=== PATIENT | female | born 1980 | race Caucasian/White ===

== ENCOUNTER 2020-12-27 08:26 | Outpatient (REF) | payer OTHER, SELFPAY ==
[2021-01-02 03:11] LABS: HPV 16 RNA NOT DETECTED (NOT DETECTED); HPV mRNA E6/E7 rflx Detected (Not Detected)
== END 2020-12-27 08:27 | disposition home or self-care (01) ==
LOC: HO.LAB 08:26
PROVIDERS: Visit Provider Advanced Practice Midwife
DX: Z01.419 Encounter for gynecological examination (general) (routine) without abnormal findings (principal); N87.0 Mild cervical dysplasia; F32.9 Major depressive disorder, single episode, unspecified; G43.909 Migraine, unspecified, not intractable, without status migrainosus; Z97.5 Presence of (intrauterine) contraceptive device
CPT/HCPCS: 87624; 87625; 88141; 88142

== ENCOUNTER 2021-02-21 09:26 | Outpatient (REF) | payer OTHER, SELFPAY | END 2021-02-21 09:27 | disposition home or self-care (01) | LOC: HO.LAB 09:26 | PROVIDERS: Visit Provider Obstetrics & Gynecology | DX: N87.0 Mild cervical dysplasia (principal) | CPT/HCPCS: 57454; 81025; 88305 ==

== ENCOUNTER → 2021-03-07 10:10 | Outpatient (BNVA) | payer OTHER, SELFPAY | PROVIDERS: Visit Provider Obstetrics & Gynecology ==

== ENCOUNTER 2021-06-26 05:40 | Emergency (ER) | payer OTHER, SELFPAY ==
[2021-06-26 05:44] VITALS: BP 137/76; PULSE 100; RESP 18; TEMP 37.1; O2SAT 97; BMI 23.8
[2021-06-26 06:14] LABS: Appearance Urine HAZY; Color Urine DK YELLOW; Glucose Urine UA NEG (NEG); Leukocyte Esterase Urine NEG (NEG); Nitrite Urine NEG (NEG); Specific Gravity - Urine 1.025 (1.005-1.025); UACC Culture Trigger NO; Urine Blood 2+ (NEG); Urine Ketones >=80 MG/DL (NEG); Urine Protein 2+ MG/DL (NEG-TRACE)
[2021-06-26 06:17] LABS: UPreg QC Valid YES; Urine Pregnancy NEGATIVE (NEGATIVE)
[2021-06-26 06:23] LABS: COVID-19 Test Negative (Negative)
[2021-06-26 06:26] LABS: MANUAL DIFF FLAG NO
[2021-06-26 06:27] LABS: Basophils Percent Auto 0.1 % (0-2); Eosinophils Percent Auto 0.1 % (0-4); Hematocrit 46.1 % (37-47); Hemoglobin 15.9 g/dl (12.0-16.0); Imm Gran Abs Auto 0.02 X10*3/uL (0.00-0.03); Imm Gran Pct Auto 0.2 % (0.0-0.4); Lymphocytes Absolute Auto 1.1 X10*3/uL (1.2-4.9); Mean Corpuscular HGB Conc 34.5 g/dl (31.0-35.0); Mean Corpuscular Hemoglobin 32.8 pg (27.0-33.0); Mean Corpuscular Volume 95.1 fL (80-98); Mean Platelet Volume 8.7 fL (9.4-12.3); Monocytes Absolute Auto 0.7 X10*3/uL (0.1-1.2); Monocytes Percent Auto 6.6 % (2-11); Neutrophils Absolute Auto 8.1 X10*3/uL (2.0-8.3); Platelet Count 231 X10*3/uL (160-400); Red Blood Count 4.85 X10*6/uL (4.20-5.50); Red Cell Distribution Width 12.7 % (11.0-16.0); White Blood Count 9.9 X10*3/uL (4.8-10.8)
[2021-06-26 06:34] LABS: Lactic Acid 0.8 mmol/L (0.5-2.0)
[2021-06-26 06:42] LABS: Anion Gap 17 (12-20); Blood Urea Nitrogen 9 mg/dL (9-16); Calcium 9.5 mg/dL (8.4-10.2); Carbon Dioxide 23 mmol/L (22-29); Chloride 102 mmol/L (96-108); Creatinine Clr Calc Pharmacy 71.7; Estimated Glomerular Filt Rate > 60; Glucose Random 99 mg/dL (60-115); Potassium 4.1 mmol/L (3.3-5.1); Sodium 138 mmol/L (135-145)
[2021-06-26 06:47] LABS: Mucus Urine 4+ /LPF; Squamous Epithelial Cell Urine 4+ /LPF; WBC Urine 0-2 /HPF (0-4)
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
[2021-06-26 08:00] LABS: Strep A Nucleic Acid Negative (Negative)
[2021-06-26 08:35] LABS: Monotest Positive (Negative)
--- NOTE | 2021-06-26 09:30 | PC.NURSE ---
pt alert and oriented, vss, pt denies pain, pt medically cleared for discharge. discharge summary given to pt.
[2021-06-26 09:37] VITALS: BP 105/76; PULSE 86; RESP 16; O2SAT 97
== END 2021-06-26 09:38 | disposition home or self-care (01) ==
PROVIDERS: Emergency Provider Emergency Medicine
DX: B25.9 Cytomegaloviral disease, unspecified (principal); M54.50 Low back pain, unspecified; R50.9 Fever, unspecified; Z20.822 Contact with and (suspected) exposure to COVID-19; Z79.899 Other long term (current) drug therapy
CPT/HCPCS: 36415; 80048; 81001; 81025; 83605; 85025; 86308; 87040; 87635; 87651; 99283; 99284

== ENCOUNTER 2021-06-30 11:13 | Inpatient (IN) | payer OTHER, MEDICAID, SELFPAY ==
[2021-06-30] VITALS (7 sets, daily range): BP systolic 114–148; BP diastolic 42–95; PULSE 81–100; RESP 16–18; TEMP 36.4–37.3; O2SAT 96–99; BMI 24.5
--- NOTE | ~2021-06-30 | US_ITS ---
EXAMINATION: US ABDOMEN LIMITED CLINICAL INFORMATION: Question cholecystitis. COMPARISON: CT abdomen 06/30/2021 TECHNIQUE: Real-time imaging of the right upper quadrant abdominal viscera. FINDINGS: GALLBLADDER: Multiple gallstones. Echogenic bile. Gallbladder wall is mildly prominent measuring 4 mm. No pericholecystic fluid. No tenderness in the area of the gallbladder. COMMON BILE DUCT: Normal in caliber measuring 0.4 cm in diameter. FREE FLUID: No significant fluid in the right upper quadrant. US/US abdomen limited IMPRESSION: Cholelithiasis. Echogenic bile. Gallbladder wall prominence measuring 4 mm. No tenderness or pericholecystic fluid. Findings are nonspecific, equivocal. Early or evolving cholecystitis cannot be excluded. Recommend close clinical correlation and follow-up. Short-term follow-up ultrasound or further evaluation with HIDA scan as clinically warranted.
--- NOTE | ~2021-06-30 | CT_ITS ---
EXAMINATION: CT ABDOMEN AND PELVIS WITH CONTRAST CLINICAL INFORMATION: Right lower quadrant pain. History of mononucleosis. COMPARISON: None TECHNIQUE: Multidetector volumetric images were obtained from the superior aspect of the liver through the pubic symphysis following administration 85 mL of Omnipaque 350 intravenous contrast. Sagittal and coronal reformatted images were obtained on the technologist's workstation. Oral contrast: Yes This CT examination was performed using dose optimization techniques as appropriate, variously including the following: *Automated exposure control *Adjustment of mA and/or kV according to patient size (this includes techniques or standardized protocols for targeted exams where dose is matched to indication/reason for exam; i.e. extremities or head) *Use of iterative reconstruction technique DLP: 484 mGy-cm FINDINGS: LUNG BASES: The visualized lung bases are unremarkable. LIVER, GALLBLADDER, AND BILIARY TREE: The liver is normal in size, shape, and attenuation. No focal hepatic lesion or biliary ductal dilatation is present. There are gallstones in the gallbladder. PANCREAS: Unremarkable. SPLEEN: Unremarkable. ADRENAL GLANDS: Unremarkable. KIDNEYS AND URETERS: There is a 4 mm stone in the right kidney. No hydronephrosis, ureteral dilatation or ureteral stone is seen. BLADDER: Unremarkable. GASTROINTESTINAL TRACT: The small and large bowel are unremarkable. The appendix is unremarkable. ABDOMINAL WALL: No significant hernia is appreciated. LYMPH NODES: Normal. VASCULAR: Unremarkable. PELVIC VISCERA: There is an IUD in the uterus in satisfactory position. OSSEOUS STRUCTURES: There are degenerative changes of the spine. CT/CT abdomen pelvis w con IMPRESSION: Gallstones. Right renal stone. Normal-appearing appendix. Normal-sized spleen. IUD in the uterus in satisfactory position.
--- NOTE | 2021-06-30 12:33 | ECG_ITS ---
Test Reason : MONO? Blood Pressure : / mmHG Vent. Rate : 085 BPM Atrial Rate : 085 BPM P-R Int : 134 ms QRS Dur : 080 ms QT Int : 350 ms P-R-T Axes : 062 038 031 degrees QTc Int : 416 ms Normal sinus rhythm Nonspecific ST abnormality Abnormal ECG No previous ECGs available Referred By: Lisa Irizarry Electronically Signed By:CRISTOFER BLACK MD
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
[2021-06-30 13:26] LABS: Hematocrit 39.6 % (37-47); Hemoglobin 13.9 g/dl (12.0-16.0); Mean Corpuscular HGB Conc 35.1 g/dl (31.0-35.0); Mean Corpuscular Hemoglobin 32.9 pg (27.0-33.0); Mean Corpuscular Volume 93.8 fL (80-98); Mean Platelet Volume 8.3 fL (9.4-12.3); Platelet Count 209 X10*3/uL (160-400); Red Blood Count 4.22 X10*6/uL (4.20-5.50); Red Cell Distribution Width 12.7 % (11.0-16.0); White Blood Count 5.1 X10*3/uL (4.8-10.8)
[2021-06-30] MEDS: Lidocaine HCl Viscous 2 % 15 ML SOLUTION 10 ML MUCOUS MEM (13:30)
[2021-06-30] MEDS: Cyclobenzaprine HCl 10 MG TABLET PO (13:31)
[2021-06-30] MEDS: Ibuprofen 800 MG TABLET PO (13:31)
[2021-06-30] MEDS: Butalb/Acetamin/Caff 50/325/40 TABLET 1 TAB PO (13:31)
[2021-06-30] MEDS: 0.9 % Sodium Chloride 1,000 ML 999 ML IVCONT ×3 (13:32→16:43)
[2021-06-30] MEDS: dexAMETHasone sod phosphate 10 MG/ML VIAL IVPUSH (13:32)
[2021-06-30] MEDS: ondansetron HCL 4 MG/2 ML VIAL IVPUSH ×3 (13:32→20:10)
[2021-06-30 13:52] LABS: Alanine Aminotransferase 153 U/L (0-31); Albumin Level 4.2 g/dL (3.5-5.0); Alkaline Phosphatase 181 U/L (39-117); Anion Gap 15 (12-20); Aspartate Amino Transferase 86 U/L (5-31); Bilirubin Total 0.7 mg/dL (0.0-1.0); Blood Urea Nitrogen 8 mg/dL (9-16); Calcium 9.2 mg/dL (8.4-10.2); Carbon Dioxide 26 mmol/L (22-29); Chloride 104 mmol/L (96-108); Estimated Glomerular Filt Rate > 60; Glucose Random 92 mg/dL (60-115); Potassium 3.5 mmol/L (3.3-5.1); Sodium 141 mmol/L (135-145); Total Protein 6.9 g/dL (6.5-8.0)
[2021-06-30 13:55] LABS: Atypical Lymph Absolute Manual 0.6 x10*3/uL; Atypical Lymphs Percent Manual 11 % (0-6); Band Neutrophils Percent 0 % (3-5); Lymphocytes Absolute Manual 1.6 X10*3/uL (0.6-4.8); Lymphocytes Percent Manual 31 % (20-40); Monocytes Absolute Manual 0.3 X10*3/uL (0.0-1.2); Monocytes Percent Manual 5 % (2-11); Neutrophils Absolute Manual 2.7 X10*3/uL (2.2-7.9); Neutrophils Percent Manual 53 % (45-73)
[2021-06-30 13:56] LABS: Platelet Estimate NORMAL (NORMAL); Platelet Morphology Comment NORMAL; RBC Morphology NORMAL
--- NOTE | 2021-06-30 14:05 | PC.NURSE ---
recent [place] diagnosis, states right sided low abd pain and nausea, no vomiting. Also reports headache, stiff neck and throat discomfort. IV established and labs drawn. Medicated as charted. Skin color pink warm and dry. Speaking full sentences. Pt reports unable to tolerate PO x 4 days.
[2021-06-30 14:11] LABS: HCG Quantitative < 2 mIU/mL
[2021-06-30 14:12] LABS: Appearance Urine HAZY; Color Urine YELLOW; Glucose Urine UA NEG (NEG); Leukocyte Esterase Urine NEG (NEG); Nitrite Urine NEG (NEG); PH 6.5 (5.0-8.0); Specific Gravity - Urine 1.015 (1.005-1.025); UACC Culture Trigger NO; Urine Blood TRACE (NEG); Urine Ketones >=80 MG/DL (NEG); Urine Protein NEG (NEG-TRACE)
[2021-06-30 14:15] LABS: UPreg QC Valid YES; Urine Pregnancy NEGATIVE (NEGATIVE)
[2021-06-30 14:26] LABS: Squamous Epithelial Cell Urine 3+ /LPF
[2021-06-30 14:27] LABS: Amorphous Sediment Urine 2+ /LPF; Bacteria Urine 1+ /LPF; Mucus Urine 1+ /LPF; RBC Urine 0 /HPF (0); WBC Urine 0-2 /HPF (0-4)
[2021-06-30] MEDS: iohexoL 350 MG/ML 100 ML INFUS..BTL 85 ML IV (15:00)
[2021-06-30 16:02] LABS: Lipase 26 U/L (8-78)
--- NOTE | 2021-06-30 17:47 | PC.NURSE ---
Pt reports throat has greatly improved s/p lidocaine, headache remains but improved since arrival and abd pain is worsening at this time. appears comfortable. All fluid orders have been complet. No nausea/vomtiing, awaits u/s reslts
[2021-06-30] MEDS: Morphine Sulfate 4 MG/ML CARTRIDGE IVPUSH ×2 (18:37→20:10)
[2021-06-30] MEDS: Piperacillin Sodium/Tazobactam 3.375 GM in 0.9 % Sodium Chloride 50 ML IV (20:10)
[2021-06-30 20:30] LABS: COVID-19 Test Negative (Negative)
[2021-06-30] MEDS: Dextrose 5 % and Lactated Ring 1,000 ML 125 ML IVCONT (21:24)
[2021-07-01] VITALS (20 sets, daily range): BP systolic 113–145; BP diastolic 64–77; PULSE 73–96; RESP 15–20; TEMP 36.4–37.3; O2SAT 93–100
[2021-07-01] MEDS: Piperacillin Sodium/Tazobactam 3.375 GM in 0.9 % Sodium Chloride 50 ML IV ×2 (02:42→07:43)
[2021-07-01] MEDS: Acetaminophen 325 MG TABLET 650 MG PO (02:47)
--- NOTE | 2021-07-01 03:06 | PC.NURSE ---
Pt c/o sore throat and HOOPER, requesting the medicine they gave me for my throat earlier in the day. This RN sees lidocaine in the MAR, requests order for same from Dr Roach. Per V/O from Dr Roach, pt to receive lidocaine.
[2021-07-01] MEDS: Lidocaine HCl Viscous 2 % 15 ML SOLUTION MUCOUS MEM (03:12)
--- NOTE | 2021-07-01 03:52 | PC.NURSE ---
pt reports improvement in HOOPER from 03/31 to 01/29, states it's getting better. Pt offered additional PO per clear liquid diet, declines. Pt ambulates to bathroom with steady, independent gait. Initial liter of D5LR continues to infuse as ordered despite MAR indicating need for additional bag at this time.
[2021-07-01] MEDS: Dextrose 5 % and Lactated Ring 1,000 ML 125 ML IVCONT ×2 (05:04→18:49)
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
--- NOTE | 2021-07-01 11:39 | MHC.CM.PN ---
Patient lives with two young children. Fully independent, no prior services or equipment needs. Car in [facility] parking [place]. Plan is home at time of D/C. If unable to drive self, she will find alternate transport home. CM to follow.
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
--- NOTE | 2021-07-01 13:06 | P.OP_ITS ---
Operative Note Operative Note Date of Service: 07/01/21 Narrative: Preoperative diagnosis: acute cholecystitis, cholelithiasis Postoperative diagnosis: Same Procedure: Laparoscopic cholecystectomy Surgeon: Otis Whitaker MD Tanning Salon Attendant: NADINE Stallings Anesthesia: General endotracheal Indications for procedure: 41-year-old female patient presenting with complaints of abdominal pain in the right upper quadrant recently diagnosed with mononucleosis. The pain increased in severity and should return to the emergency department at which time an elevated liver function tests were identified. Gallstones were subsequent identified on CT and ultrasound. The wall was noted of a moderately thickened on ultrasound. She presents today for laparoscopic or possible open cholecystectomy. Operative findings: Multiple gallstones within the gallbladder with pericholecystic fluid and edematous gallbladder wall. Specimen: gallbladder Estimated blood loss: 10 mL Complications: none Procedure details: Patient was brought to the OR and placed in a supine position. After administering general anesthesia the patient's abdomen was prepped with ChloraPrep and draped in a sterile fashion. Local anesthesia consisting of 0.5% Sensorcaine without epinephrine was infiltrated in a periumbilical region. A 5 mm incision was made above the umbilicus in a transverse fashion. The Veress needle was then inserted while elevating abdominal cavity with towel clips. After positive drop test the abdomen was insufflated to a pressure of 15 mm of mercury. The Veress needle was then removed and a 5 mm trocar inserted. The camera was inserted in the abdomen explored. A 12 mm trocar was then placed in the epigastrium and two 5 mm trocars placed in the right upper quadrant. The patient was placed in reverse Trendelenburg positioning and rotated to the left. The gallbladder was grasped with the fundus and retracted cephalad.. The infundibulum was then grasped and retracted away from the liver bed. The Dolphin dissected was then used to dissect the peritoneum off the infundibulum to reveal the junction with the cystic duct. Cystic artery was noted slightly medial and posterior to the cystic duct. After obtaining a critical view the cystic duct was doubly clipped and divided. The cystic artery was then doubly clipped and divided. The gallbladder was then dissected off the liver bed using electrocautery with an L hook. Hemostasis was assured all times using the electrocautery. When the gallbladder is completely dissected off the liver bed was placed in an Endo- Catch bag and brought out through the epigastric incision. The gallbladder was sent to pathology for further examination. The abdomen was then re-examined. The liver bed was irrigated and suctioned dry. No bleeding or bile leak could be identified. CO2 was then evacuated and all trocars removed. Fascia was closed at the epigastric incision using a [id number] Polysorb suture. Skin was closed in all incisions using a subcuticular 4 0 Polysorb suture. Sterile dressings consisting of Steri-Strips, 2 x 2 gauze, and Tegaderm were then applied. The patient tolerated the procedure well. Sponge instrument and needle counts reported as correct. The patient was transferred to PACU in stable condition.
[2021-07-01] MEDS: fentaNYL citrate/PF 100 MCG/2 ML VIAL 50 MCG IVPUSH ×4 (13:20→13:47)
--- NOTE | 2021-07-01 13:58 | PC.NURSE ---
GETTING READY TO DISCHARGE PATIENT FROM PACU AND SHE STARTED TO FEEL ITCHY. LUNGS CLEAR THROUGHOUT. REDNESS NOTED TO FOREHEAD AND NECK. NO SOB OR RESP DISTRESS.
[2021-07-01] MEDS: diphenhydrAMINE HCL 50 MG/ML VIAL 25 MG IVPUSH (14:02)
--- NOTE | 2021-07-01 14:06 | PC.NURSE ---
MEDICATED WITH BENADRYL 25MG IVP PER MD CALZADA ANESTHESIA.
--- NOTE | 2021-07-01 14:22 | PC.NURSE ---
UPON ARRIVAL TO FLOOR PATIENT HAD DECREASED ITCHING AND REDNESS TO HER FOREHEAD AND NECK. NO SOB OR RESP DISTRESS. PRIMARY RN ALEJANDRO AWARE OF THE BENADRYL AND RASH.
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
[2021-07-01] MEDS: Cyclobenzaprine HCl 10 MG TABLET PO (22:24)
[2021-07-02] VITALS: BP 120/70; PULSE 76; RESP 18; TEMP 37.2; O2SAT 98
[2021-07-02 04:00] VITALS: BP 124/74; PULSE 74; RESP 18; TEMP 36.9; O2SAT 98
[2021-07-02] MEDS: Dextrose 5 % and Lactated Ring 1,000 ML 125 ML IVCONT (04:30)
[2021-07-02 07:16] VITALS: BP 119/67; PULSE 73; RESP 18; TEMP 37.1; O2SAT 99
--- NOTE | 2021-07-02 09:19 | P.PNGS_ITS ---
Subjective Subjective Date of Service: 07/02/21 Interval history: feels better no events reported tolerating oral intake Physical Exam Vital Signs: Vital Signs: Last Vital Signs Temp 98.8 F 07/02/21 07:16 Pulse 73 07/02/21 07:16 Resp 18 07/02/21 07:16 BP 119/67 07/02/21 07:16 Pulse Ox 99 07/02/21 07:16 Body Mass Index 24.5 Const: General: comfortable and no acute distress Eyes: Sclerae: sclerae normal Resp: Effort & Inspection: normal respiratory effort Cardio: Rate: regular rate GI: Other: dressings dry, no redness Palpation (GI): Soft to palpation and not firm Procedures Date of Service Date of Service: 07/02/21 Progress Note: A&P Assessment and plan (1) Cholecystitis, acute with cholelithiasis: Status: Acute Assessment and Plan: S/P lap ana doing well postop she says she is ready to go home dc instructions given ffup with Dr. chambers Fall Risk Details Current Medications: Current Medications Cyclobenzaprine HCl (Cyclobenzaprine Hcl 10 Mg Tablet) 10 mg PO BEDTIME PRN PRN Reason: Muscle Spasm Last Admin: 07/01/21 22:24 Dose: 10 mg Documented by: Dextrose/Lactated Ringer's (D5lr) 1,000 mls @ 125 mls/hr IVCONT .Q8H [facility] Last Admin: 07/02/21 04:30 Dose: 125 mls/hr Documented by: Acetaminophen (Ofirmev) 1,000 mg in 100 mls @ 400 mls/hr IV Q6H [facility] Last Infusion: 07/02/21 04:45 Dose: Infused Documented by: Morphine Sulfate (Morphine Sulfate 4 Mg/Ml Cartridge) 4 mg IVPUSH Q3H PRN; Protocol PRN Reason: Pain, Severe (Pain Scale 7-10) Last Admin: 06/30/21 20:10 Dose: 4 mg Documented by: Ondansetron HCl (Ondansetron Hcl 4 Mg/2 Ml Vial) 4 mg IVPUSH Q8H PRN PRN Reason: Nausea Last Admin: 06/30/21 20:10 Dose: 4 mg Documented by: Oxycodone HCl (Oxycodone Hcl Immed Release 5 Mg Tablet) 5 mg PO Q6H PRN PRN Reason: Pain, Moderate (Pain Scale 4-6 Zolpidem Tartrate (Zolpidem Tartrate 5 Mg Tablet) 5 mg PO BEDTIME PRN PRN Reason: Insomnia Time Spent With Patient Time: Total time spent is greater than 50% in coordination of care (as documented) at patient's floor/unit and/or counseling patient: Time with patient: 15 - 24 minutes Quality Stroke Does the patient have a stroke diagnosis?: No VTE Prior VTE?: No VTE Risk Level:: Surgical - low VTE Device Contraindication: N/A - Device Ordered VTE Drug Contraindication: Treatment Not Indicated
--- NOTE | 2021-07-02 09:38 | PM.IMPN ---
Progress Note: A&P (1) Cytomegalovirus mononucleosis: Status: Acute Assessment and Plan: This is a 41-year-old female recently diagnosed with mononucleosis admitted to the surgical service with acute cholecystitis status post cholecystectomy Acute cholecystitis Status post cholecystectomy Management per surgical team Nausea, vomiting. Resolved Likely secondary to pain medication [place] supportive care No acute medical issues, will sign off. Attending Dr. Whiting Subjective Subjective Date of Service: 07/02/21 Review of Systems Follow-up cholecystectomy Pain is controlled Good appetite Likely discharge today Physical Exam Vital Signs: Vital Signs: Last Vital Signs Temp 98.8 F 07/02/21 07:16 Pulse 73 07/02/21 07:16 Resp 18 07/02/21 07:16 BP 119/67 07/02/21 07:16 Pulse Ox 99 07/02/21 07:16 Body Mass Index 24.5 Appearing in no acute distress lung sounds are clear to auscultation heart regular rate rhythm, clear S1, S2 positive bowel sounds, abdomen is soft, nontender neuro patient is alert x3, no focal deficits Objective Data Current Medications Cyclobenzaprine HCl (Cyclobenzaprine Hcl 10 Mg Tablet) 10 mg PO BEDTIME PRN PRN Reason: Muscle Spasm Last Admin: 07/01/21 22:24 Dose: 10 mg Documented by: Dextrose/Lactated Ringer's (D5lr) 1,000 mls @ 125 mls/hr IVCONT .Q8H [facility] [place] Last Admin: 07/02/21 04:30 Dose: 125 mls/hr Documented by: Acetaminophen (Ofirmev) 1,000 mg in 100 mls @ 400 mls/hr IV Q6H [facility] [place] Last Admin: 07/02/21 09:35 Dose: 400 mls/hr Documented by: Morphine Sulfate (Morphine Sulfate 4 Mg/Ml Cartridge) 4 mg IVPUSH Q3H PRN; Protocol PRN Reason: Pain, Severe (Pain Scale 7-10) Last Admin: 06/30/21 20:10 Dose: 4 mg Documented by: Ondansetron HCl (Ondansetron Hcl 4 Mg/2 Ml Vial) 4 mg IVPUSH Q8H PRN PRN Reason: Nausea Last Admin: 06/30/21 20:10 Dose: 4 mg Documented by: Oxycodone HCl (Oxycodone Hcl Immed Release 5 Mg Tablet) 5 mg PO Q6H PRN PRN Reason: Pain, Moderate (Pain Scale 4-6 Zolpidem Tartrate (Zolpidem Tartrate 5 Mg Tablet) 5 mg PO BEDTIME PRN PRN Reason: Insomnia Labs CBC & Chem 7: 06/30/21 13:16 06/30/21 13:16 Quality Stroke Does the patient have a stroke diagnosis?: No VTE Prior VTE?: No VTE Risk Level:: Surgical - low VTE Device Contraindication: N/A - Device Ordered VTE Drug Contraindication: Treatment Not Indicated
--- NOTE | 2021-07-02 10:12 | MHC.CM.PN ---
PT TO DC HOME TODAY WITH NO SERVICES
[2021-07-03 08:52] LABS: ~HepC Num1 0.13 S/CO (0.00-0.79); ~Hepatitis C Antibody Nonreactive (Nonreactive)
[2021-07-03 08:58] LABS: HBS Num1 1.67 mIU/mL (0-7.99); HBc Num1 0.15 S/CO (0.00-0.79); HBsAGNum1 0.16 S/CO (0.00-0.99); Hepatitis B Core Antibody Nonreactive (Nonreactive); Hepatitis B Surface Antigen Negative (Negative); ~Hepatitis B Surface Antibody NONREACTIVE (Nonreactive)
--- NOTE | 2021-07-03 15:06 | PM.DS ---
DS: Providers Provider Date of Service: 07/03/21 Date of admission: 06/30/21 17:59 Primary care physician: None Physician Attending physician on admission: Otis Whitaker Consults: 07/01/21 14:32 Consult to Hospitalist Routine Consulting Provider: Hospitalist Reason For Exam: acute cholecystitis, mononucleosis, post op nausea DS: Diagnosis Discharge Diagnosis (1) Cytomegalovirus mononucleosis: Status: Resolved DS: Summary Hospital Course Hospital Course: BRIEF HPI: Maru Winters is a 41 year old female presenting to the ED with complaints of fever, headache, nausea and abdominal pain for one week, recently diagnosed with mononucleosis on 06/26/2021. She reports a fever of 103, frontal headaches and anorexia due to nausea and a sore throat. The abdominal pain is mainly located in the right upper and lower quadrant. She reports similar episodes of abdominal pain mainly in the right upper quadrant during her . The symptoms did improve after delivery and she denied any ongoing symptoms prior to the current episode. She returned to the ED and was found to have a normal WBC but elevated liver transaminases and alk phos. Subsequent CT of the abdomen and pelvis revealed gallstones in the gallbladder. US of the abdomen confirmed cholelithiasis and a 4 mm gallbladder wall. No tenderness or percholecystitic fluid was identified. HOSPITAL COURSE: Patient was admitted for further management of the possible acute cholecystitis. She was taken to the OR for laparoscopic cholecystectomy on 07/01/2021. Operative findings were suggestive of acute cholecystitis with a thickened gallbladder wall with pericholecystic fluid and gallstones. She tolerated the procedure well and was observed in recovery room and then transported to the med surg unit. She was subsequently advanced to a regular diet and tolerated this well. She did have some sharp incisional pain for the 1st evening but by the next hospital day felt much improved. She was able to tolerate a regular diet without nausea or vomiting. She was comfortable on oral pain medications and felt ready for discharge to home. Patient was discharged home in stable condition on 07/02/2021. Discharge instructions were to avoid lifting greater than 10 lb for the next 2 weeks and avoid fatty/greasy foods for the next month. She should follow up my office in approximately 1 week for wound examination. She should call for fever, chills, nausea, vomiting, or increased abdominal pain. Status at Discharge Functional status at discharge: independent ambulation Overall status at discharge: patient is progressing back to baseline Time Spent with Patient Time attestation: Total time spent providing and/or coordinating discharge services: Discharge coordination time: Less than 30 minutes Quality: Stroke Does the patient have a stroke diagnosis?: No Physical Exam Vital Signs: Vital Signs: Last Vital Signs Temp 98.8 F 07/02/21 07:16 Pulse 73 07/02/21 07:16 Resp 18 07/02/21 07:16 BP 119/67 07/02/21 07:16 Pulse Ox 99 07/02/21 07:16 Body Mass Index 24.5 DS: Data Data Completed and Pending Pending studies at discharge: Pending at discharge 07/01/21 12:52 Surgical [PTH] Routine Labs on day of discharge: Laboratory Results - last 24 hr 06/30/21 13:16 Hep Bs Antigen Negative Hep Bs Antibody NONREACTIVE Hep B Core Total Ab Nonreactive Hepatitis C Ab (EIA) Nonreactive Discharge Plan Discharge Patient Disposition: Home, Self-Care Discharge Diagnosis: acute cholecystitis Referrals: Otis Whitaker MD [Physician] - 2 Weeks Physician,None [Primary Care Provider] - 1 Week Discharge Medications: New oxycodone-acetaminophen [Percocet] 5-325 mg tablet 1 tab PO Q4-6H PRN (Reason: pain) Qty: 30 RF: 0 ibuprofen 600 mg tablet 600 mg PO Q6H PRN (Reason: pain) Qty: 30 RF: 0 No Action metoclopramide HCl [Reglan] 10 mg tablet 10 mg PO Q6H PRN (Reason: nausea and vomiting) Qty: 14 RF: 0 Discharge Orders: Discharge Order (Routine); Ordered 07/02/21 Ordered By: Wong Euceda Activity on Discharge: No heavy lifting Stand Alone Forms: Patient Portal Discharge page Activity Restrictions/Additional Instructions: If the incision area is tender, you may apply an ice pack for short intervals (No more than 20 minutes on, followed by at least 20 minutes off). Do not apply heat. Do not use creams, lotions, or topical antibiotics unless instructed to do so by your surgeon. These can cause infection or allergic reaction. OK to shower 07/03 Okay to change dressings with Band-Aids No lifting more than 20 lb No strenuous activities Call the office for follow-up in 2 weeks - with Dr. Whitaker Call Your Doctor If: -Your temperature exceeds 101.5? F -You experience excessive pain or swelling -You have an unexpected reaction to medication -You have excessive bleeding -You experience continued vomiting/nausea -Your incision begins to separate -Your incision shows signs of infection such as increased redness, swelling, excessive pain, drainage (light blood or clear fluid is normal) or heat Care Plan Goals: pain control postop Health Concerns: pain management postop Plan of Treatment: oral pain meds ffup with Dr. Whitaker for postop check Assessment: doing well postop Discharge Date/Time: 07/02/21 11:22
--- NOTE | 2021-07-03 16:50 | P.DS_ITS ---
DS: Providers Provider Date of Service: 07/01/21 Date of admission: 06/30/21 17:59 Date of discharge: 07/02/21 Primary care physician: None Physician Consults: 07/01/21 14:32 Consult to Hospitalist Routine Consulting Provider: Hospitalist Reason For Exam: acute cholecystitis, mononucleosis, post op nausea Attending physician on discharge: Otis Whitaker DS: Diagnosis Discharge Diagnosis (1) Cholecystitis, acute with cholelithiasis: Status: Acute (2) Cytomegalovirus mononucleosis: Status: Acute DS: Summary Hospital Course Hospital Course: BRIEF HPI: Maru Winters is a 41 year old female presenting to the ED with complaints of fever, headache, nausea and abdominal pain for one week, recently diagnosed with mononucleosis on 06/26/2021. She reports a fever of 103, frontal headaches and anorexia due to nausea and a sore throat. The abdominal pain is mainly located in the right upper and lower quadrant. She reports similar episodes of abdominal pain mainly in the right upper quadrant during her . The symptoms did improve after delivery and she denied any ongoing symptoms prior to the current episode. She returned to the ED and was found to have a normal WBC but elevated liver transaminases and alk phos. Subsequent CT of the abdomen and pelvis revealed gallstones in the gallbladder. US of the abdomen confirmed cholelithiasis and a 4 mm gallbladder wall. No tenderness or percholecystitic fluid was identified. HOSPITAL COURSE: Patient was admitted for further management of the possible acute cholecystitis. She was taken to the OR for laparoscopic cholecystectomy on 07/01/2021. Operative findings were suggestive of acute cholecystitis with a thickened gallbladder wall with pericholecystic fluid and gallstones. She tolerated the procedure well and was observed in recovery room and then transported to the med surg unit. She was subsequently advanced to a regular diet and tolerated this well. She did have some sharp incisional pain for the 1st evening but by the next hospital day felt much improved. She was able to tolerate a regular diet without nausea or vomiting. She was comfortable on oral pain medications and felt ready for discharge to home. Patient was discharged home in stable condition on 07/02/2021. Discharge instructions were to avoid lifting greater than 10 lb for the next 2 weeks and avoid fatty/greasy foods for the next month. She should follow up my office in approximately 1 week for wound examination. She should call for fever, chills, nausea, vomiting, or increased abdominal pain. Time Spent with Patient Time attestation: Total time spent providing and/or coordinating discharge services: Discharge coordination time: Less than 30 minutes Quality: Stroke Does the patient have a stroke diagnosis?: No Physical Exam Vital Signs: Vital Signs: Last Vital Signs Temp 98.8 F 07/02/21 07:16 Pulse 73 07/02/21 07:16 Resp 18 07/02/21 07:16 BP 119/67 07/02/21 07:16 Pulse Ox 99 07/02/21 07:16 Body Mass Index 24.5 Const: General: no acute distress and well developed Nutritional Appearance: well nourished Orientation/consciousness: patient oriented x3 Limitations: no limitations Resp: Other: Breathing comfortably on room air GI: Other: Intact dressings following laparoscopic cholecystectomy. Abdomen otherwise soft and nondistended. Skin: Other: Warm, dry, no rash Neuro: General: patient oriented x3 DS: Data Data Completed and Pending Pending studies at discharge: Pending at discharge 07/01/21 12:52 Surgical [PTH] Routine Labs on day of discharge: Laboratory Results - last 24 hr 06/30/21 13:16 Hep Bs Antigen Negative Hep Bs Antibody NONREACTIVE Hep B Core Total Ab Nonreactive Hepatitis C Ab (EIA) Nonreactive Discharge Plan Discharge Patient Disposition: Home, Self-Care Discharge Diagnosis: acute cholecystitis Referrals: Otis Whitaker MD [Physician] - 2 Weeks Physician,None [Primary Care Provider] - 1 Week Discharge Medications: New oxycodone-acetaminophen [Percocet] 5-325 mg tablet 1 tab PO Q4-6H PRN (Reason: pain) Qty: 30 RF: 0 ibuprofen 600 mg tablet 600 mg PO Q6H PRN (Reason: pain) Qty: 30 RF: 0 Discharge Orders: Discharge Order (Routine); Ordered 07/02/21 Ordered By: Wong Euceda Activity on Discharge: No heavy lifting Stand Alone Forms: Patient Portal Discharge page Activity Restrictions/Additional Instructions: If the incision area is tender, you may apply an ice pack for short intervals (N o more than 20 minutes on, followed by at least 20 minutes off). Do not apply heat. Do not use creams, lotions, or topical antibiotics unless instructed to do so by your surgeon. These can cause infection or allergic reaction. OK to shower 07/03 Okay to change dressings with Band-Aids No lifting more than 20 lb No strenuous activities Call the office for follow-up in 2 weeks - with Dr. Whitaker Call Your Doctor If: -Your temperature exceeds 101.5? F -You experience excessive pain or swelling -You have an unexpected reaction to medication -You have excessive bleeding -You experience continued vomiting/nausea -Your incision begins to separate -Your incision shows signs of infection such as increased redness, swelling, excessive pain, drainage (light blood or clear fluid is normal) or heat Care Plan Goals: pain control postop Health Concerns: pain management postop Plan of Treatment: oral pain meds ffup with Dr. Whitaker for postop check Assessment: doing well postop Discharge Date/Time: 07/02/21 11:22
[2021-07-04 07:56] LABS: ~Hepatitis A Antibody IgM Nonreactive (Nonreactive)
== END 2021-07-02 11:22 | disposition home or self-care (01) | DRG 419 ==
LOC: HO.ED 18:03 → HO.EDOVER 18:22 → HO.IMC 07-01 04:11
PROVIDERS: Physician Assistant Medical; Admitting Provider Surgery; Emergency Provider Emergency Medicine Emergency Medical Services; Visit Provider Surgery
PROC: 0FT44ZZ Resection of Gallbladder, Percutaneous Endoscopic Approach (ICD-10-PCS; CPT 47562; principal; 2021-07-01 10:00)
DX: K80.00 Calculus of gallbladder with acute cholecystitis without obstruction (principal); Z20.822 Contact with and (suspected) exposure to COVID-19; B27.10 Cytomegaloviral mononucleosis without complications
CPT/HCPCS: 36415; 74177; 76705; 80053; 81001; 81025; 83690; 83735; 84702; 85007; 85027; 86704; 86706; 86709; 86803; 87340; 87635; 88304; 93005; 96361; 96374; 96375; 96376; 99024; 99285; 99291; J0131; J1100; J1200; J2250; J2270; J2405; J2543; J3010; Q9967

== ENCOUNTER 2021-07-03 23:08 | Emergency (ER) | payer OTHER, SELFPAY ==
[2021-07-03 23:37] VITALS: BP 130/76; PULSE 97; RESP 16; TEMP 37; O2SAT 100; BMI 23.8
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
[2021-07-04] MEDS: Magnesium Hydrox/Alum Hydrox 30 ML ORAL.SUSP PO (03:09)
[2021-07-04] MEDS: Lidocaine HCl Viscous 2 % 15 ML SOLUTION 10 ML PO (03:10)
[2021-07-04] MEDS: 0.9 % Sodium Chloride 1,000 ML 999 ML IV (03:16)
[2021-07-04] MEDS: diphenhydrAMINE HCL 50 MG/ML VIAL IVPUSH (03:17)
[2021-07-04] MEDS: Ketorolac Tromethamine 15 MG/ML VIAL 30 MG IVPUSH (03:18)
[2021-07-04] MEDS: Metoclopramide HCl 10 MG/2 ML VIAL IVPUSH (03:21)
[2021-07-04 03:34] LABS: Basophils Percent Auto 0.5 % (0-2); Eosinophils Absolute Auto 0.1 X10*3/uL (0.0-0.4); Eosinophils Percent Auto 1.6 % (0-4); Hematocrit 40.1 % (37-47); Imm Gran Abs Auto 0.01 X10*3/uL (0.00-0.03); Imm Gran Pct Auto 0.2 % (0.0-0.4); Lymphocytes Absolute Auto 2.8 X10*3/uL (1.2-4.9); MANUAL DIFF FLAG SCAN; Mean Corpuscular HGB Conc 34.9 g/dl (31.0-35.0); Mean Corpuscular Hemoglobin 32.4 pg (27.0-33.0); Mean Corpuscular Volume 92.8 fL (80-98); Mean Platelet Volume 8.6 fL (9.4-12.3); Monocytes Absolute Auto 0.4 X10*3/uL (0.1-1.2); Monocytes Percent Auto 5.9 % (2-11); Neutrophils Absolute Auto 3.1 X10*3/uL (2.0-8.3); Neutrophils Percent Auto 47.8 % (45-73); Platelet Count 264 X10*3/uL (160-400); Red Blood Count 4.32 X10*6/uL (4.20-5.50); Red Cell Distribution Width 12.3 % (11.0-16.0); SCAN SMEAR FLAG 1; White Blood Count 6.4 X10*3/uL (4.8-10.8)
[2021-07-04 03:42] LABS: IDNOW Serial# 9DD0AD1C; Strep A Nucleic Acid Negative (Negative)
[2021-07-04 03:45] LABS: Lactic Acid 0.9 mmol/L (0.5-2.0)
[2021-07-04 03:52] LABS: SLIDE REVIEW VERIFIED
[2021-07-04 03:54] LABS: Alanine Aminotransferase 237 U/L (0-31); Albumin Level 4.1 g/dL (3.5-5.0); Alkaline Phosphatase 169 U/L (39-117); Anion Gap 13 (12-20); Aspartate Amino Transferase 118 U/L (5-31); Bilirubin Total 0.6 mg/dL (0.0-1.0); Blood Urea Nitrogen 12 mg/dL (9-16); Calcium 9.5 mg/dL (8.4-10.2); Carbon Dioxide 27 mmol/L (22-29); Chloride 103 mmol/L (96-108); Creatinine Clr Calc Pharmacy 86.9; Estimated Glomerular Filt Rate > 60; Glucose Random 94 mg/dL (60-115); Lipase 35 U/L (8-78); Sodium 139 mmol/L (135-145)
== END 2021-07-04 06:00 | disposition home or self-care (01) ==
PROVIDERS: Emergency Provider Emergency Medicine Emergency Medical Services
DX: B27.90 Infectious mononucleosis, unspecified without complication (principal); R50.9 Fever, unspecified; R51.9 Headache, unspecified; Z20.822 Contact with and (suspected) exposure to COVID-19; Z79.899 Other long term (current) drug therapy
CPT/HCPCS: 36415; 80053; 83605; 83690; 85025; 87040; 87651; 96361; 96374; 96375; 99283; 99284; J1200; J1885; J2765

== ENCOUNTER → 2021-07-10 13:53 | Outpatient (BNVA) | payer OTHER, SELFPAY | PROVIDERS: Visit Provider Surgery ==

== ENCOUNTER 2023-03-28 08:00 | Emergency (ER) | payer OTHER, MEDICAID, SELFPAY ==
[2023-03-28 08:02] VITALS: BP 97/75; PULSE 107; RESP 19; TEMP 36.6; O2SAT 99; BMI 26.7
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
[2023-03-28 09:46] VITALS: BP 109/66; PULSE 91; RESP 20; O2SAT 98
--- NOTE | 2023-03-28 10:08 | PC.NURSE ---
pt reports feeling better after fluids and nausea med, pt refusing lidocaine. KRISTIAN Gauthier aware.
[2023-03-28 11:28] VITALS: BP 101/63; PULSE 97; RESP 20; TEMP 37.6; O2SAT 97
== END 2023-03-28 11:33 | disposition home or self-care (01) ==
PROVIDERS: Emergency Provider Emergency Medicine Emergency Medical Services
DX: R10.13 Epigastric pain (principal); R10.11 Right upper quadrant pain; R11.2 Nausea with vomiting, unspecified; R07.89 Other chest pain; Z79.899 Other long term (current) drug therapy
CPT/HCPCS: 36415; 76705; 80048; 80076; 81001; 83690; 83735; 85025; 93005; 96361; 96374; 96375; 99284; 99285; J2405

== ENCOUNTER 2023-06-03 08:55 | Outpatient (AMB) | payer OTHER, SELFPAY ==
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
[2023-06-03 09:02] VITALS: BP 110/76; BMI 26.3
== END 2023-06-03 09:39 | disposition home or self-care (01) ==
PROVIDERS: Visit Provider Advanced Practice Midwife
DX: Z01.419 Encounter for gynecological examination (general) (routine) without abnormal findings (principal); L70.9 Acne, unspecified; N89.8 Other specified noninflammatory disorders of vagina; F41.9 Anxiety disorder, unspecified
CPT/HCPCS: 99396

== ENCOUNTER 2023-06-03 08:55 | Outpatient (REF) | payer OTHER, SELFPAY ==
[2023-06-10 05:34] LABS: HPV 16 RNA NOT DETECTED (NOT DETECTED); HPV mRNA E6/E7 rflx Detected (Not Detected)
== END 2023-06-03 08:56 | disposition home or self-care (01) ==
LOC: HO.LNP 08:55
PROVIDERS: Visit Provider Advanced Practice Midwife
DX: Z01.419 Encounter for gynecological examination (general) (routine) without abnormal findings (principal); Z11.51 Encounter for screening for human papillomavirus (HPV); N87.0 Mild cervical dysplasia; N89.8 Other specified noninflammatory disorders of vagina
CPT/HCPCS: 87624; 87625; 88142

== ENCOUNTER 2023-06-03 09:36 | Outpatient (REF) | payer OTHER, SELFPAY ==
[2023-06-04 05:45] LABS: CT PCR NOT DETECTED (Not Detect.); NG PCR NOT DETECTED (Not Detect.)
[2023-06-04 15:11] LABS: BV Int Neg Control Negative (Negative); BV Int Pos Control Positive (Positive)
== END 2023-06-03 09:37 | disposition home or self-care (01) ==
LOC: HO.LAB 09:36
PROVIDERS: Visit Provider Advanced Practice Midwife
DX: N89.8 Other specified noninflammatory disorders of vagina (principal)
CPT/HCPCS: 0353U; 87480; 87510; 87660